=== PATIENT | female | born 1940 | race Caucasian/White ===

== ENCOUNTER 2017-04-20 20:27 | Emergency (ER) | payer OTHER, MEDICAID ==
[~2017-04-20] VITALS: Ht 154.9 cm; Wt 91.6 kg
[2017-04-20 20:40] VITALS: Ht 154.9 cm; Wt 91.6 kg
[2017-04-20 23:39] VITALS: BP 138/84
== END 2017-04-20 23:39 | disposition home or self-care (01) ==
LOC: ED 20:27
DX: M54.32 Sciatica, left side (principal); M46.86 Other specified inflammatory spondylopathies, lumbar region; M47.896 Other spondylosis, lumbar region
CPT/HCPCS: J1885; J2270; Q0162